=== PATIENT | female | born 1980 | race African-American/Black ===

== ENCOUNTER → 2020-03-13 | Day surgery (SDC) | payer MEDICARE, OTHER ==
[~2020-03-13] VITALS: Ht 165.1 cm; Wt 74.4 kg
[~2020-03-13] MED LIST: HAIR SKIN & NAI1 TAB PO
[2020-03-13 08:31] LABS: HCG SERUM/URINE (NEG/POS) NEGATIVE (NEGATIVE)
[2020-03-13 08:40] VITALS: BP 194/105
== END | disposition home or self-care (01) ==
LOC: ORM 08:00
PROVIDERS: ATTEND Surgery
DX: C50.912 Malignant neoplasm of unspecified site of left female breast (principal); R59.0 Localized enlarged lymph nodes; R91.8 Other nonspecific abnormal finding of lung field; Z53.29 Procedure and treatment not carried out because of patient's decision for other reasons; Z92.21 Personal history of antineoplastic chemotherapy; Z20.828 Contact with and (suspected) exposure to other viral communicable diseases